=== PATIENT | female | born 1995 | race Caucasian/White ===

== ENCOUNTER 2021-12-11 23:38 | Emergency (ER) | payer OTHER ==
[~2021-12-11] VITALS: Ht 157.5 cm; Wt 72.3 kg
[2021-12-12] MEDS ORDERED: CEPH-558 PO (00:50)
[2021-12-12 01:00] VITALS: BP 112/64
[2021-12-12] MEDS ORDERED: PERTUSS(ACELL),DIPH,TET VAC/PF 0.5 ML SYRINGE IM. ONE (01:00)
== END 2021-12-12 01:08 | disposition home or self-care (01) ==
LOC: EMS 23:38
DX: S91.002A Unspecified open wound, left ankle, initial encounter (principal); F12.90 Cannabis use, unspecified, uncomplicated; Z88.8 Allergy status to other drugs, medicaments and biological substances; X58.XXXA Exposure to other specified factors, initial encounter; Y93.89 Activity, other specified; Y92.89 Other specified places as the place of occurrence of the external cause; Y99.8 Other external cause status
CPT/HCPCS: 90471; 90715; 99283

== ENCOUNTER 2023-09-03 20:31 | Emergency (ER) | payer OTHER ==
[~2023-09-03] VITALS: Ht 160 cm; Wt 80.0 kg
[~2023-09-03 20:31] MED LIST: CEPH-558 PO
[2023-09-03] MEDS ORDERED: LIDOCAINE 1% 10 ML VIAL SQ ONE (22:45)
[2023-09-04 01:00] VITALS: BP 129/73; PULSE 75; RESP 16; TEMP 97.8
== END 2023-09-04 02:26 | disposition home or self-care (01) ==
LOC: EMS 20:32
DX: O9A.211 Injury, poisoning and certain other consequences of external causes complicating pregnancy, first trimester (principal); S62.615A Displaced fracture of proximal phalanx of left ring finger, initial encounter for closed fracture; F12.90 Cannabis use, unspecified, uncomplicated; Z88.8 Allergy status to other drugs, medicaments and biological substances; Z88.6 Allergy status to analgesic agent; Z3A.09 9 weeks gestation of pregnancy; X58.XXXA Exposure to other specified factors, initial encounter; Y93.89 Activity, other specified; Y92.89 Other specified places as the place of occurrence of the external cause; Y99.8 Other external cause status
CPT/HCPCS: 99284; 73130; 29130; 73140; J3490